=== PATIENT | female | born 1995 ===

== ENCOUNTER 2017-10-06 01:59 | Day surgery (SDC) | payer BC ==
[~2017-10-06] VITALS: Ht 170.2 cm; Wt 51.7 kg
[~2017-10-06 01:59] MED LIST: ACET-1966 PO; CETI-176 PO; DEXT10TA9 PO; ETON1VAG7 VG; METH-278 PO
[2017-10-06] MEDS ORDERED: fentaNYL CITR 250 MCG/5 ML AMP ONE (10:45)
[2017-10-06] MEDS ORDERED: DEXAMETHASONE SOD PHOS 10MG/ML ONE (10:46)
[2017-10-06] MEDS ORDERED: PROPOFOL EMUL(*) 10MG/ML 20 ML 20 ML ONE (10:46)
[2017-10-06] MEDS ORDERED: ONDANSETRON 4 MG/2 ML VIAL ONE (10:46)
[2017-10-06] MEDS ORDERED: LIDOCAINE MPF 1% 5 ML VIAL ONE (10:46)
[2017-10-06] MEDS ORDERED: ceFAZolin(*) 1 GM VIAL 1 GM in NS(*) 0.9% 100 ML ADDVANT BAG 100 ML IVPB ONE (10:50)
[2017-10-06] MEDS ORDERED: FAMOTIDINE 20 MG TAB PO ONE (10:50)
[2017-10-06] MEDS ORDERED: LIDOCAINE/SOD BICARB 8.4% SYR ID ONE (10:50)
[2017-10-06] MEDS ORDERED: MIDAZOLAM 2 MG/2 ML VIAL IVP PRN (10:50)
[2017-10-06 11:00] VITALS: BP 118/86
[2017-10-06] MEDS: NORMOSOL R SOLN(*) 1000 ML BAG 1,000 ML IV PRN ×2 (11:00→12:17)
[2017-10-06] MEDS ORDERED: SCOPOLAMINE 1.5 MG PATCH TD ONE (11:20)
[2017-10-06] MEDS ORDERED: LIDOCAINE 2% JELLY 5 ML TUBE ONE (11:36)
[2017-10-06] MEDS ORDERED: ROPIVACAINE 0.2% 20 ML VIAL ONE (11:45)
[2017-10-06] MEDS ORDERED: CELECOXIB 200 MG CAP PO ONE (11:50)
[2017-10-06] MEDS ORDERED: PROPOFOL EMUL(*) 10MG/ML 20 ML 60 ML ONE (12:10)
[2017-10-06] MEDS ORDERED: ROCURONIUM BROM 10 MG/ML 5 ML ONE (12:30)
[2017-10-06] MEDS ORDERED: fentaNYL CITR 100 MCG/2 ML AMP ONE ×2 (13:11→14:36)
[2017-10-06] MEDS ORDERED: PROPOFOL EMUL(*) 10MG/ML 20 ML 40 ML ONE (13:24)
[2017-10-06] MEDS ORDERED: NEOMYCIN/POLYMYX/BACITR OINT 1 PACKET TP ONE (13:56)
[2017-10-06] MEDS ORDERED: LOR5/325 PO (14:07)
[2017-10-06] MEDS ORDERED: APAP/HYDROCODONE 325/5 TAB ONE ×2 (14:53→15:25)
[2017-10-06 15:15] VITALS: BP 105/65
[2017-10-06 15:21] VITALS: BP 127/57
[2017-10-06 15:23] VITALS: BP 118/76
--- NOTE | 2017-10-06 17:19 | OPERATIVE REPORT 1 ---
EVENT DATE: October 06, 2017 SURGEON: Herb Leo MD ANESTHESIOLOGIST: Simone Babin MD ANESTHESIA: General. SHEET METAL JOURNEYMAN: RADHA Arzola PREOPERATIVE DIAGNOSIS Longstanding distal radioulnar joint disruption status post wrist fracture treated elsewhere with open reduction and internal fixation using volar plate. POSTOPERATIVE DIAGNOSES 1. Longstanding distal radioulnar joint disruption status post wrist fracture treated elsewhere with open reduction and internal fixation using volar plate. 2. Disruption of extensor carpi ulnaris subsheath, but confirmed integrity between triangular fibrocartilage complex and basilar ulnar styloid fracture. PROCEDURES PERFORMED Open reduction and internal fixation of basilar ulnar styloid fracture effecting repair of the triangular fibrocartilage complex and ligamentous structures of the wrist in association with repair of the extensor carpi ulnaris subsheath. ESTIMATED BLOOD LOSS Minimal. INTRAVENOUS FLUID Crystalloid 1200, no colloid. TOURNIQUET TIME 73 minutes SPECIMENS No specimens. COMPLICATIONS No complications. IMPLANTS TriMed three-hole dorsal pin plate with two K-wires and three screws. SUMMARY OF PROCEDURE The patient was brought into the operating room and placed on the OR table in the supine position. After obtaining adequate general anesthesia, the left upper extremity was prepped and draped in the usual sterile fashion. The limb was exsanguinated, and the tourniquet was inflated to 250 mmHg. Standard approach was first undertaken to examine the ECU subsheath and TFCC region. We accomplished this by first testing her and confirming complete disruption of the DRUJ and ulnar subluxation of the ECU with dorsal displacement of the ulna. An incision was made along the dorsal inner aspect of the distal ulna, deepened through skin and subcutaneous tissue. The ECU was evaluated. The subsheath was compromised, but repairable. The residual tissue was opened where it had stretched and detached from the underlying structures, and it was retracted. The ECU was temporarily placed on a quarter-inch Jean Pierre drain. The deep tissues beneath this were now split to expose the displaced basilar ulnar styloid fracture. I also exposed the rest of the ulnar shaft on its margin and cleaned the margin of where the fracture had broken away. We used a curette to clean both the underside of the styloid as the distal aspect of the ulna and then lifted the style up while pushing the ulna down and then drove a K -wire in to temporarily hold it to see if this would actually yield a stability. We then tested the DRUJ, and it actually appeared very stable. Therefore, no attempt was made to reconstruct the entire structure. We initially planned to put an Ulnar Sled on, but that was not going to work because of the nature of the obliquity on the fracture. Consequently, we switched to an ulnar pin plate. We placed two K-wires from the pin plate and then bent the plate to fit the contour of the ulnar, pushing down and radially a bit on the styloid to stabilize it. Screws were placed in the pin plate, and then pins were pulled out a bit, turned, and then pushed back into the bone to create a double pin construct for each single pin. In this fashion, it seemed to give the ulnar styloid fairly good stability, and when we retested the distal radioulnar joint, it was quite sound. The ECU was still mobile, and therefore, we did a repair of the ECU subsheath using 4-0 FiberWire suture in the deep structures and then tensioning it around the ECU with superficial 4.0 FiberWire as well. Finally, we completed the extensor retinaculum repair with additional 4-0 suture dorsally. The wound was irrigated as it had been throughout the case, and then we deflated the tourniquet, controlling bleeding with bipolar cautery, but there was minimal bleeding. We did confirm during the approach that we were staying clear of the dorsal ulnar cutaneous branch. Nylon was used to close the skin. She was given a dry, sterile dressing and then an ulnar gutter splint extending from the upper arm, across the elbow, and down onto the wrist so that we would not allow for supination or pronation for a full six to eight weeks. CAITLYN
== END 2017-10-06 15:15 | disposition home or self-care (01) ==
LOC: OR 01:59
PROVIDERS: ATTEND Orthopaedic Surgery Hand Surgery
DX: S52.612A Displaced fracture of left ulna styloid process, initial encounter for closed fracture (principal); S63.592A Other specified sprain of left wrist, initial encounter
CPT/HCPCS: 25652; 76000; 81025; A4565; C1713; J0690; J1100; J2001; J2250; J2405; J2704; J2795; J3010; J7050

== ENCOUNTER 2018-02-24 12:21 | Emergency (ER) | payer BC ==
[~2018-02-24 12:21] MED LIST changes: +LOR5/325 PO
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
[2018-02-24] MEDS ORDERED: NS(*) 0.9% 1000 ML BAG 1,000 ML IV ONE (12:40)
[2018-02-24] MEDS ORDERED: ONDANSETRON 4 MG/2 ML VIAL IVP ONE (12:40)
[2018-02-24 13:30] VITALS: BP 128/93
== END 2018-02-24 13:53 | disposition home or self-care (01) ==
LOC: ER 12:28
DX: R11.0 Nausea (principal)
CPT/HCPCS: 80305; 80357; 80375; 81001; 96361; 96374; 99284; J2405; J7030